=== PATIENT | female | born 1955 | race Caucasian/White ===

== ENCOUNTER → 2022-10-06 14:58 | Outpatient (CLI) | payer MEDICARE, SELFPAY ==
--- NOTE | 2022-10-06 | DI.US.S_ITS ---
PROCEDURE: US PELVIC COMPLETE INDICATIONS: INTRA-ABDOMINAL AND PELVIC SWELLING, MASS AND LUMP TECHNIQUE: Real-time scanning was performed of the pelvic organs, with image documentation. Additional endovaginal scanning was necessary due to incomplete visualization of the adnexal and endometrial structures by transabdominal scanning. COMPARISON: None. FINDINGS: Uterus: Uterus is anteverted and normal in size at 6.9 x 2.7 x 4.3 cm. The myometrium is homogeneous. The endometrium measures 2.1 mm combined thickness. There is a midline anterior intramural 1.1 x 0.6 x 1.0 cm fibroid. Calcifications are noted at the cervix. Ovaries: The right ovary measures 1.9 x 1.8 x 2.0 cm, with a calculated ovarian volume of 3.6 cc. The left ovary measures 1.7 x 1.4 x 1.6 cm, with a calculated ovarian volume of 1.9 cc. The ovaries have a normal sonographic appearance. Less than 12 follicles can be seen in each ovary. No adnexal masses are seen. Other: No pathologic free abdominal or pelvic fluid. IMPRESSION: 1. Small uterine fibroid. 2. Otherwise unremarkable pelvic ultrasound. We strive to produce accurate, complete, and clear reports of imaging services. To assist us in improving patient care, this report was composed using standard report templates and voice recognition software. Therefore, it may contain abnormal punctuation, insertions and/or omissions. Occasional wrong-word or sound-alike substitutions may occur. Though we review the report and make efforts to correct it, we do recommend that the report be read carefully in proper context to recognize any text inaccuracies. Dictated by: Veronika Mayo M.D. on 10/06/2022 at 16:52 Approved by: Veronika Mayo M.D. on 10/06/2022 at 16:53
== END ==
PROVIDERS: PCP Nurse Practitioner Family; Referring Provider Nurse Practitioner Family; Visit Provider Nurse Practitioner Family
DX: D25.1 Intramural leiomyoma of uterus (principal); R19.00 Intra-abdominal and pelvic swelling, mass and lump, unspecified site
CPT/HCPCS: 76830; 76856